=== PATIENT | male | born 1985 | race Caucasian/White ===

== ENCOUNTER 2017-05-09 13:08 | Emergency (ER) | payer SELFPAY ==
[~2017-05-09] VITALS: Ht 173 cm; Wt 97.7 kg
[~2017-05-09 13:08] MED LIST: AMOXICILLIN500 MG OR; AMOXICILLIN500 MG PO; BACTRIM DS1 TAB PO; BOOSTRIX IM; DOXYCYCL HYC100 MG OR; FLEXERIL OR; LORTAB 10 PO; MELOXICAM15 MG; MELOXICAM15 MG PO; NAPROSYN500 MG OR; NAPROSYN500 MG PO; NO; NO HOME MEDS; NO MORE TANG; PERCOCET 5/325M1 TAB PO; ULTRAM50 M1 PO; UNKNOWN ANTIBIOTIC; VICODIN1 TAB PO
[2017-05-09 14:27] LABS: HEMOGLOBIN 16.6 g/dl (14.0-18.0); IMMATURE GRANULOCYTES 0.3 % (0.0-1.0); MEAN CELL VOLUME 88.2 fL CALC (80.0-100.0); MEAN CORPUSCULAR HGB 31.1 pG CALC (26.0-32.0); MEAN CORPUSCULAR HGB CONC 35.3 g/L CALC (32.0-36.0); NEUT# 3.89 thou/uL (1.82-7.42); RED BLOOD COUNT 5.33 mill/uL (4.70-6.10); RED CELL DISTRI WIDTH 12.8 % (11.5-15.5)
[2017-05-09 14:50] LABS: ALKALINE PHOSPHATASE 57 u/l (38-126); AMYLASE 44 u/l (30-110); ANION GAP 17 (6-22 (CALC)); BILIRUBIN, TOTAL 1.2 mg/dL (0.0-1.4); BUN 16 mg/dL (9-20); BUN/CREATININE RATIO 18 (12-20 (CALC)); CALCIUM 9.7 mg/dL (8.4-10.2); CARBON DIOXIDE 27 mmol/l (22-30); CHLORIDE 104 mmol/l (95-108); CREATININE 0.9 mg/dL (0.7-1.3); GFR > 60 ML/MIN (>=60 (CALC)); GFR FOR AFR.AMER. > 60 ML/MIN (>=60 (CALC)); GLUCOSE 81 mg/dL (75-110); LIPASE 91 u/l (23-300); POTASSIUM 4.1 mmol/l (3.5-5.1); SGOT/AST 39 u/l (17-59); SGPT/ALT 104 u/l (21-72); SODIUM 143 mmol/l (137-146); TOTAL PROTEIN 8.3 g/dL (6.3-8.2)
[2017-05-09 15:03] LABS: URINE BILIRUBIN - DIPSTICK NEGATIVE (NEGATIVE); URINE BLOOD DIPSTICK NEGATIVE (NEGATIVE); URINE CLARITY CLEAR; URINE COLOR YELLOW; URINE GLUCOSE - DIPSTICK NEGATIVE (NEGATIVE); URINE KETONE NEGATIVE (NEGATIVE); URINE LEUK ESTERASE NEGATIVE (NEGATIVE); URINE NITRITE - DIPSTICK NEGATIVE (Negative); URINE PH 5.5 (4.5-8.0); URINE PROTEIN - DIPSTICK NEGATIVE (NEG-TRACE); URINE SPECIFIC GRAVITY >=1.030; URINE UROBILINOGEN - DIPSTICK 0.2 E.U./dL (0.2)
[2017-05-09] MEDS ORDERED: ZOFRAN ODT4 MG PO (16:03)
[2017-05-09] MEDS ORDERED: CIPROFLOXACN500 MG PO (16:03)
[2017-05-09 16:06] VITALS: BP 118/77
== END 2017-05-09 16:11 | disposition home or self-care (01) | DRG 392 ==
LOC: ED 13:08
PROVIDERS: Emergency Medicine
DX: K52.9 Noninfective gastroenteritis and colitis, unspecified (principal); R11.2 Nausea with vomiting, unspecified; R10.33 Periumbilical pain; R10.32 Left lower quadrant pain
CPT/HCPCS: Q9967

== ENCOUNTER 2019-01-01 16:15 | Emergency (ER) | payer OTHER ==
[~2019-01-01] VITALS: Ht 173 cm; Wt 100.0 kg
[~2019-01-01 16:15] MED LIST changes: +CIPROFLOXACN500 MG PO; +ZOFRAN ODT4 MG PO
[2019-01-01 16:51] LABS: HEMOGLOBIN 16.3 g/dl (14.0-18.0); IMMATURE GRANULOCYTES 0.3 % (0.0-5.0); MEAN CELL VOLUME 88.2 fL CALC (80.0-100.0); MEAN CORPUSCULAR HGB 30.6 pG CALC (26.0-32.0); MEAN CORPUSCULAR HGB CONC 34.7 g/L CALC (32.0-36.0); NEUT# 3.52 thou/uL (1.82-7.42); RED BLOOD COUNT 5.33 mill/uL (4.70-6.10); RED CELL DISTRI WIDTH 12.5 % (11.5-15.5)
[2019-01-01 17:02] LABS: ALBUMIN 4.5 g/dL (3.2-5.0); ALKALINE PHOSPHATASE 56 u/l (38-126); ANION GAP 14 (6-22 (CALC)); BUN 12 mg/dL (9-20); BUN/CREATININE RATIO 13 (12-20 (CALC)); CARBON DIOXIDE 28 mmol/l (22-30); CHLORIDE 106 mmol/l (95-108); GFR > 60 ML/MIN (>=60 (CALC)); GFR FOR AFR.AMER. > 60 ML/MIN (>=60 (CALC)); POTASSIUM 3.7 mmol/l (3.5-5.1); SGOT/AST 29 u/l (17-59); SODIUM 144 mmol/l (137-146); TOTAL PROTEIN 7.3 g/dL (6.3-8.2)
[2019-01-01] MEDS ORDERED: BENTYL10 MG PO (17:52)
[2019-01-01] MEDS ORDERED: ZOFRAN4 M1 PO (17:52)
[2019-01-01 18:00] VITALS: BP 110/74
== END 2019-01-01 18:00 | disposition home or self-care (01) | DRG 392 ==
LOC: ED 16:15
PROVIDERS: Emergency Medicine
DX: K52.9 Noninfective gastroenteritis and colitis, unspecified (principal)

== ENCOUNTER 2019-06-17 17:47 | Emergency (ER) | payer SELFPAY ==
[~2019-06-17] VITALS: Ht 173 cm; Wt 100.0 kg
[~2019-06-17 17:47] MED LIST changes: +BENTYL10 MG PO; +ZOFRAN4 M1 PO
[2019-06-17 18:49] LABS: HEMATOCRIT 47.3 % (39.0-50.0); HEMOGLOBIN 16.9 g/dl (14.0-18.0); IMMATURE GRANULOCYTES 0.3 % (0.0-5.0); MEAN CELL VOLUME 87.1 fL CALC (80.0-100.0); MEAN CORPUSCULAR HGB 31.1 pG CALC (26.0-32.0); MEAN CORPUSCULAR HGB CONC 35.7 g/L CALC (32.0-36.0); NEUT# 4.09 thou/uL (1.82-7.42); RED BLOOD COUNT 5.43 mill/uL (4.70-6.10); RED CELL DISTRI WIDTH 12.3 % (11.5-15.5)
[2019-06-17 19:41] LABS: URINE BILIRUBIN - DIPSTICK NEGATIVE (NEGATIVE); URINE BLOOD DIPSTICK NEGATIVE (NEGATIVE); URINE COLOR YELLOW; URINE GLUCOSE - DIPSTICK NEGATIVE (NEGATIVE); URINE KETONE TRACE mg/dL (NEGATIVE); URINE LEUK ESTERASE NEGATIVE (NEGATIVE); URINE NITRITE - DIPSTICK NEGATIVE (Negative); URINE PROTEIN - DIPSTICK NEGATIVE (NEG-TRACE); URINE SPECIFIC GRAVITY 1.025
[2019-06-17 20:07] LABS: ALBUMIN 4.6 g/dL (3.2-5.0); ALKALINE PHOSPHATASE 57 u/l (38-126); AMYLASE 49 u/l (30-110); ANION GAP 14 (6-22 (CALC)); BILIRUBIN, TOTAL 0.7 mg/dL (0.0-1.4); BUN 13 mg/dL (9-20); BUN/CREATININE RATIO 15 (12-20 (CALC)); CARBON DIOXIDE 25 mmol/l (22-30); CHLORIDE 105 mmol/l (95-108); CREATININE 0.9 mg/dL (0.7-1.3); GFR > 60 ML/MIN (>=60 (CALC)); GFR FOR AFR.AMER. > 60 ML/MIN (>=60 (CALC)); LIPASE 150 u/l (23-300); POTASSIUM 3.9 mmol/l (3.5-5.1); SGOT/AST 26 u/l (17-59); SODIUM 140 mmol/l (137-146); TOTAL PROTEIN 7.4 g/dL (6.3-8.2)
[2019-06-17] MEDS ORDERED: ONDANSETRON4 MG PO (20:20)
[2019-06-17] MEDS ORDERED: NAPROXEN500 MG PO (20:20)
[2019-06-17 20:30] VITALS: BP 106/52
== END 2019-06-17 20:33 | disposition home or self-care (01) | DRG 866 ==
LOC: ED 17:47
PROVIDERS: Emergency Medicine
DX: B34.9 Viral infection, unspecified (principal); M79.10 Myalgia, unspecified site

== ENCOUNTER 2020-08-22 16:51 | Emergency (ER) | payer SELFPAY ==
[~2020-08-22] VITALS: Ht 173 cm; Wt 100.0 kg
[~2020-08-22 16:51] MED LIST changes: +NAPROXEN500 MG PO; +ONDANSETRON4 MG PO
[2020-08-22 17:29] LABS: HEMATOCRIT 46.5 % (39.0-50.0); HEMOGLOBIN 15.8 g/dl (14.0-18.0); IMMATURE GRANULOCYTES 0.1 % (0.0-5.0); MEAN CELL VOLUME 88.6 fL CALC (80.0-100.0); MEAN CORPUSCULAR HGB 30.1 pG CALC (26.0-32.0); NEUT# 4.19 thou/uL (1.82-7.42); RED BLOOD COUNT 5.25 mill/uL (4.70-6.10); RED CELL DISTRI WIDTH 11.8 % (11.5-15.5)
[2020-08-22 17:42] LABS: ALBUMIN 4.4 g/dL (3.2-5.0); ALKALINE PHOSPHATASE 59 u/l (38-126); ANION GAP 11 (6-22 (CALC)); BILIRUBIN, TOTAL 0.5 mg/dL (0.0-1.4); BUN 11 mg/dL (9-20); BUN/CREATININE RATIO 12 (12-20 (CALC)); CARBON DIOXIDE 27 mmol/l (22-30); CHLORIDE 108 mmol/l (95-108); CREATININE 0.9 mg/dL (0.7-1.3); GFR > 60 ML/MIN (>=60 (CALC)); GFR FOR AFR.AMER. > 60 ML/MIN (>=60 (CALC)); LIPASE 114 u/l (23-300); POTASSIUM 3.8 mmol/l (3.5-5.1); SGOT/AST 30 u/l (17-59); SODIUM 142 mmol/l (137-146); TOTAL PROTEIN 7.4 g/dL (6.3-8.2)
[2020-08-22 18:31] LABS: URINE BILIRUBIN - DIPSTICK NEGATIVE (NEGATIVE); URINE BLOOD DIPSTICK NEGATIVE (NEGATIVE); URINE COLOR YELLOW; URINE GLUCOSE - DIPSTICK NEGATIVE (NEGATIVE); URINE KETONE NEGATIVE (NEGATIVE); URINE LEUK ESTERASE NEGATIVE (NEGATIVE); URINE NITRITE - DIPSTICK NEGATIVE (Negative); URINE PROTEIN - DIPSTICK NEGATIVE (NEG-TRACE); URINE SPECIFIC GRAVITY 1.025; URINE UROBILINOGEN - DIPSTICK 0.2 E.U./dL (0.2)
[2020-08-22] MEDS ORDERED: PEPCID20 MG PO (19:03)
[2020-08-22] MEDS ORDERED: SUDAFED NASAL D30 MG PO (19:03)
[2020-08-22 19:10] VITALS: BP 115/81
== END 2020-08-22 19:10 | disposition home or self-care (01) | DRG 866 ==
LOC: ED 16:51
DX: B34.9 Viral infection, unspecified (principal); K21.9 Gastro-esophageal reflux disease without esophagitis; Z20.828 Contact with and (suspected) exposure to other viral communicable diseases

== ENCOUNTER 2020-12-06 17:55 | Emergency (ER) | payer MEDICAID ==
[~2020-12-06] VITALS: Ht 175.3 cm; Wt 100.0 kg
[~2020-12-06 17:55] MED LIST changes: +PEPCID20 MG PO; +SUDAFED NASAL D30 MG PO
[2020-12-06 18:58] LABS: HEMATOCRIT 48.7 % (39.0-50.0); HEMOGLOBIN 16.5 g/dl (14.0-18.0); MEAN CELL VOLUME 89.7 fL CALC (80.0-100.0); MEAN CORPUSCULAR HGB 30.4 pG CALC (26.0-32.0); MEAN CORPUSCULAR HGB CONC 33.9 g/dL CAL (32.0-36.0); NEUT# 2.17 thou/uL (1.82-7.42); RED BLOOD COUNT 5.43 mill/uL (4.70-6.10); RED CELL DISTRI WIDTH 13.1 % (11.5-15.5)
[2020-12-06 19:14] LABS: ALBUMIN 4.4 g/dL (3.2-5.0); ALKALINE PHOSPHATASE 69 u/l (38-126); AMYLASE 83 u/l (30-110); ANION GAP 11 (6-22 (CALC)); BUN 16 mg/dL (9-20); BUN/CREATININE RATIO 19 (12-20 (CALC)); CARBON DIOXIDE 27 mmol/l (22-30); CHLORIDE 102 mmol/l (95-108); CREATININE 0.8 mg/dL (0.7-1.3); GFR > 60 ML/MIN (>=60 (CALC)); GFR FOR AFR.AMER. > 60 ML/MIN (>=60 (CALC)); LIPASE 356 u/l (23-300); POTASSIUM 3.7 mmol/l (3.5-5.1); SODIUM 137 mmol/l (137-146); TOTAL PROTEIN 7.6 g/dL (6.3-8.2)
[2020-12-06 19:18] LABS: BILIRUBIN, TOTAL 0.8 mg/dL (0.0-1.4); SGOT/AST 53 u/l (17-59)
[2020-12-06 20:49] VITALS: BP 113/71
== END 2020-12-06 21:07 | disposition home or self-care (01) ==
LOC: ED 17:55
DX: U07.1 COVID-19 (principal); R43.9 Unspecified disturbances of smell and taste; R07.89 Other chest pain; F17.200 Nicotine dependence, unspecified, uncomplicated

== ENCOUNTER 2023-05-22 14:36 | Emergency (ER) | payer BC ==
[~2023-05-22] VITALS: Ht 175.3 cm; Wt 70.0 kg
[2023-05-22] MEDS ORDERED: ONDANSETRON4 MG PO (16:32)
[2023-05-22] MEDS ORDERED: PAXLOVID PO (16:32)
[2023-05-22 16:44] VITALS: BP 120/91
== END 2023-05-22 16:45 | disposition home or self-care (01) | DRG 179 ==
LOC: ED 14:36
DX: U07.1 COVID-19 (principal); R50.9 Fever, unspecified; R05.9 Cough, unspecified; R52 Pain, unspecified; R09.81 Nasal congestion; R11.0 Nausea; J02.9 Acute pharyngitis, unspecified; H92.09 Otalgia, unspecified ear

== ENCOUNTER 2024-09-15 06:32 | Emergency (ER) | payer SELFPAY ==
[~2024-09-15] VITALS: Ht 175.3 cm; Wt 106.0 kg
[~2024-09-15 06:32] MED LIST changes: +PAXLOVID PO
[2024-09-15] MEDS ORDERED: AMOXICILLIN & POT CLAVULANATE 875 MG/TAB PO ONE (06:45)
[2024-09-15] MEDS ORDERED: DEXAMETHASONE 2 MG/TAB TAB PO ONE (06:45)
[2024-09-15] MEDS ORDERED: AMOX/K CLAV875 M1 PO (06:46)
[2024-09-15] MEDS ORDERED: DEXAMETHASON6 MG PO (08:28)
[2024-09-15 08:36] VITALS: BP 132/88
== END 2024-09-15 08:48 | disposition home or self-care (01) | DRG 866 ==
LOC: ED 06:32
DX: B27.90 Infectious mononucleosis, unspecified without complication (principal)